=== PATIENT | female | born 1945 | race Caucasian/White ===

== ENCOUNTER 2017-10-14 11:51 | Emergency (ER) | payer MEDICARE, BC ==
[~2017-10-14] VITALS: Ht 167.6 cm; Wt 83.9 kg
[2017-10-14] MEDS ORDERED: GLIM4 PO (12:36)
[2017-10-14] MEDS ORDERED: PANT40 PO (12:36)
[2017-10-14] MEDS ORDERED: Prinivil10 MG PO (12:37)
[2017-10-14] MEDS ORDERED: ASPI81CH PO (12:37)
[2017-10-14] MEDS ORDERED: MONT10T PO (12:37)
[2017-10-14] MEDS ORDERED: Janumet 50-1,01 EACH PO (12:37)
[2017-10-14] MEDS ORDERED: GABA300 PO (12:38)
[2017-10-14] MEDS ORDERED: ALLERGY RELIEF10 MG PO (12:38)
[2017-10-14] MEDS ORDERED: ATOR40TA PO (12:38)
[2017-10-14] MEDS ORDERED: FIORINAL-COD 31 EACH PO (14:10)
== END 2017-10-14 14:25 | disposition home or self-care (01) ==
LOC: ER 11:51
DX: G43.909 Migraine, unspecified, not intractable, without status migrainosus (principal); Z79.899 Other long term (current) drug therapy
CPT/HCPCS: 96361; 96374; 96375; 99283-25; J1200; J1885; J2765; J3010; J7030